=== PATIENT | male | born 1965 | race Caucasian/White ===

== ENCOUNTER 2017-07-08 06:49 | Emergency (ER) | payer BC ==
[~2017-07-08] VITALS: Ht 172.7 cm; Wt 88.5 kg
[~2017-07-08 06:49] MED LIST: BUPR75; HYDCHL12.5 PO; METO50ER; MIRT30 PO; SIMV5 PO; ZOLP5 PO
[2017-07-08] MEDS ORDERED: LOSA50 PO (07:13)
[2017-07-08] MEDS ORDERED: BUPR150ER PO (07:14)
[2017-07-08 07:31] LABS: BASOPHILS ABSOLUTE AUTO 0.05 K/mm3 (0.00-0.23); BASOPHILS PERCENT AUTO 1 % (0-2); EOSINOPHILS ABSOLUTE AUTO 0.13 K/mm3 (0.00-0.68); EOSINOPHILS PERCENT AUTO 2 % (0-6); Hematocrit 42.9 % (37.0-53.0); IMMATURE GRAN ABSOLUTE AUTO 0.05 K/mm3 (0.00-0.10); IMMATURE GRAN PERCENT AUTO 1 % (0-1); LYMPHOCYTES ABSOLUTE AUTO 1.99 K/mm3 (0.84-5.20); LYMPHOCYTES PERCENT AUTO 26 % (21-46); MONOCYTES ABSOLUTE AUTO 0.76 K/mm3 (0.16-1.47); MONOCYTES PERCENT AUTO 10 % (4-13); Mean Corpuscular HGB 32.9 pg (26.0-34.0); Mean Corpuscular Volume 94 fL (80-100); NEUTROPHILS ABSOLUTE AUTO 4.69 K/mm3 (1.96-9.15); NEUTROPHILS PERCENT AUTO 61 % (41-73); Platelet Count 210 K/mm3 (150-400); RDW Coefficient Variation 12.5 % (11.7-14.2); RDW Standard Deviation 43.1 fL (35.1-46.3); Red Blood Cell Count 4.56 M/mm3 (4.30-5.90); White Blood Cell Count 7.67 K/mm3 (4.00-11.30)
[2017-07-08 07:55] LABS: Alanine Aminotransfer (ALT/SGP 69 U/L (12-78); Albumin, Blood 3.2 g/dL (3.4-5.0); Albumin/Globulin Ratio 0.8 (0.8-1.8); Alk Phos 65 U/L (50-136); Anion Gap 14 mmol/L (6-16); Aspartate Aminotrans (AST/SGOT 61 U/L (12-37); Bilirubin, Total 0.3 mg/dL (0.1-1.0); Blood Urea Nitrogen 8 mg/dL (8-24); Bun/Creatinine Ratio 9.9 (12.0-20.0); CO2, Blood 24 mmol/L (21-32); Chloride, Blood 101 mmol/L (98-108); Creatinine, Blood 0.81 mg/dL (0.60-1.20); Glomerular Filtration Rate >60 (60-); Glucose, Blood 138 mg/dL (70-99); Magnesium, Blood 2.1 mg/dL (1.6-2.4); Potassium, Blood 3.3 mmol/L (3.5-5.5); Sodium, Blood 139 mmol/L (136-145); Total Protein, Blood 7.2 g/dL (6.4-8.2)
[2017-07-08] MEDS ORDERED: K-Dur20 MEQ PO (08:07)
== END 2017-07-08 08:22 | disposition home or self-care (01) ==
LOC: ER 06:49
PROVIDERS: Emergency Medicine
DX: R55 Syncope and collapse (principal); E87.6 Hypokalemia; I10 Essential (primary) hypertension; F17.210 Nicotine dependence, cigarettes, uncomplicated; Z79.899 Other long term (current) drug therapy
CPT/HCPCS: 36415; 80053; 83735; 85025; 93005; 93010; 99284

== ENCOUNTER 2018-03-17 10:23 | Day surgery (SDC) | payer BC ==
[~2018-03-17 10:23] MED LIST changes: +BUPR150ER PO; +K-Dur20 MEQ PO; +LOSA50 PO
--- NOTE | 2018-03-17 17:15 | NUR ---
INTO STEP VIA PERRY. S/P EPIDURAL STEROID INJECTION UTILIZING FLURO. PT TOLERATED PROCEDURE WELL. BANDAIDE TO LOWER BACK C/D/I-NO BLEEDING OR HEMATOMA NOTED. DISCHARGE INSTRUCTIONS GIVEN. PT REFUSED WHEELCHAIR-AMBULATED OUT OF SDS WITHOUT DIFFICUTLY.
--- NOTE | 2018-03-18 11:04 | NUR ---
03/18/18 1104 Kandace Landers EDIT TIMES TO REFLECT ACCURATE CHARGE. SPOKE WITH MELONY RASMUSSEN RN WHO WAS PRESENT DURING CASE, STATES END TIME WAS 1712 AND LOCAL WAS USED.
== END 2018-03-17 17:30 | disposition home or self-care (01) ==
LOC: ORSCMMR 10:23 → ORD 10:23 → NM 10:23 → ORSCMMR 10:24 → ORD 17:00 → ORSCMMR 17:30 → ORD 17:30 → NM 17:30
PROVIDERS: Orthopaedic Surgery
PROC: 3E0R33Z Introduction of Anti-inflammatory into Spinal Canal, Percutaneous Approach (ICD-10-PCS; principal; 2018-03-17 17:00)
DX: M51.16 Intervertebral disc disorders with radiculopathy, lumbar region (principal); I10 Essential (primary) hypertension; E78.00 Pure hypercholesterolemia, unspecified; F17.210 Nicotine dependence, cigarettes, uncomplicated
CPT/HCPCS: J1040

== ENCOUNTER → 2020-07-13 | Outpatient (CLI) | payer BC ==
[~2020-07-13] MED LIST changes: +OMEP20ER PO
[2020-07-13 10:57] LABS: Anion Gap 7 mmol/L (6-16); Blood Urea Nitrogen 12 mg/dL (8-24); CO2, Blood 29 mmol/L (21-32); Calcium, Blood 9.7 mg/dL (8.5-10.1); Chloride, Blood 100 mmol/L (98-108); Creatinine, Blood 0.86 mg/dL (0.60-1.20); Glomerular Filtration Rate >60 (60-); Glucose, Blood 120 mg/dL (70-99); Potassium, Blood 4.1 mmol/L (3.5-5.5); Sodium, Blood 136 mmol/L (136-145)
== END | disposition home or self-care (01) ==
LOC: LAB SHORT 09:12
PROVIDERS: Surgery
DX: I10 Essential (primary) hypertension (principal)
CPT/HCPCS: 36415; 80048

== ENCOUNTER 2020-07-14 09:03 | Day surgery (SDC) | payer BC ==
[~2020-07-14] VITALS: Ht 172.7 cm; Wt 88.1 kg
[~2020-07-14 09:03] MED LIST changes: -OMEP20ER PO
[2020-07-14] MEDS ORDERED: OMEP20ER PO (09:32)
--- NOTE | 2020-07-14 11:38 | NUR ---
07/14/20 1138 Fara Lopez BUP 0.5% 5ML MIXED WITH LIDO 1% 5ML FOR A 1:[address] BECK DURING THE PROCEDURE. LIDOCAINE 1% 13ML ALSO INJECTED BY DR. BECK DURING THE PROCEDURE
== END 2020-07-14 12:17 | disposition home or self-care (01) ==
LOC: ORSCSDS 09:03
PROVIDERS: Surgery
PROC: 0JB70ZZ Excision of Back Subcutaneous Tissue and Fascia, Open Approach (ICD-10-PCS; principal; 2020-07-14 10:15)
DX: D17.1 Benign lipomatous neoplasm of skin and subcutaneous tissue of trunk (principal); I10 Essential (primary) hypertension; K21.9 Gastro-esophageal reflux disease without esophagitis; Z79.899 Other long term (current) drug therapy
CPT/HCPCS: 82947; 88304; A9270; J0690; J2250; J2704; J3010; J7120

== ENCOUNTER 2021-09-01 09:29 | Day surgery (SDC) | payer OTHER, BC ==
[~2021-09-01] VITALS: Ht 172.7 cm; Wt 88.8 kg
[~2021-09-01 09:29] MED LIST changes: +OMEP20ER PO
[2021-09-01] MEDS ORDERED: IBUP600 (10:04)
[2021-09-01] MEDS ORDERED: GABA400 (10:04)
[2021-09-01] MEDS ORDERED: VICODIN HP 10-1 EAC1 (10:04)
== END 2021-09-01 10:55 | disposition home or self-care (01) ==
LOC: ORSCSDS 09:29
PROVIDERS: Anesthesiology
PROC: 3E0R33Z Introduction of Anti-inflammatory into Spinal Canal, Percutaneous Approach (ICD-10-PCS; principal; 2021-09-01 10:15)
DX: M51.16 Intervertebral disc disorders with radiculopathy, lumbar region (principal); M48.061 Spinal stenosis, lumbar region without neurogenic claudication; K21.9 Gastro-esophageal reflux disease without esophagitis; E66.9 Obesity, unspecified; Z68.30 Body mass index [BMI] 30.0-30.9, adult; I10 Essential (primary) hypertension; Z79.899 Other long term (current) drug therapy
CPT/HCPCS: J1040

== ENCOUNTER → 2022-10-18 | Outpatient (CLI) | payer BC ==
[~2022-10-18] MED LIST changes: +GABA400; +IBUP600; +VICODIN HP 10-1 EAC1
== END ==
LOC: LAB SHORT 12:36 → PLD 12:36
DX: D48.5 Neoplasm of uncertain behavior of skin (principal)
CPT/HCPCS: 88305

== ENCOUNTER 2022-11-26 06:31 | Day surgery (SDC) | payer BC ==
[~2022-11-26] VITALS: Ht 172.7 cm; Wt 86.3 kg
[2022-11-26] MEDS ORDERED: Aspir 8181 MG PO (07:02)
[2022-11-26] MEDS ORDERED: Norco 5-325 Ta1 EACH PO (07:04)
--- NOTE | 2022-11-26 08:04 | NUR ---
11/26/22 0804 Kirstie Linares 20ML OF ROPIVACAINE 0.5% MIXED AND VERIFIED WITH 0.1ML OF EPI (1MG/ML) TO MAKE ROPIVACAINE 0.5% WITH EPI 1:200,000 FOR INJECTION AT THE OPSITE BY DR ESCAMILLA.
[2022-11-26 09:30] VITALS: BP 92/64
--- NOTE | 2022-11-26 09:57 | NUR ---
11/26/22 0957 Mary Vu PT REMOVED FROM O2 AND IS STABLE AT 96% ON RA. PTS PARTNER FELICIA IS AT BEDSIDE AND PT APPEARS TO BE COMFORTABLE.
== END 2022-11-26 10:29 | disposition home or self-care (01) ==
LOC: ORSCSDS 06:31
PROVIDERS: Orthopaedic Surgery
PROC: 0QSG34Z Reposition Right Tibia with Internal Fixation Device, Percutaneous Approach (ICD-10-PCS; principal; 2022-11-26 07:30)
PROC: 0QSJ34Z Reposition Right Fibula with Internal Fixation Device, Percutaneous Approach (ICD-10-PCS; principal; 2022-11-26 07:30)
DX: S82.861A Displaced Maisonneuve's fracture of right leg, initial encounter for closed fracture (principal); I10 Essential (primary) hypertension; Z87.891 Personal history of nicotine dependence; G62.9 Polyneuropathy, unspecified; Z79.899 Other long term (current) drug therapy; Z79.82 Long term (current) use of aspirin
CPT/HCPCS: A9270; C1776; J0171; J0690; J1100; J1885; J2250; J2371; J2405; J2704; J2795; J3010; J3370; J7120

== ENCOUNTER 2023-12-09 17:25 | Inpatient (IN) | payer BC ==
[~2023-12-09] VITALS: Ht 172.7 cm; Wt 81.3 kg
[~2023-12-09 17:25] MED LIST changes: +Aspir 8181 MG PO; +BUPR150ER; -BUPR150ER PO; -METO50ER; +METO50ER PO; +Norco 5-325 Ta1 EACH PO
[2023-12-09 17:54] LABS: BASOPHILS ABSOLUTE AUTO 0.05 K/mm3 (0.00-0.23); BASOPHILS PERCENT AUTO 1 % (0-2); EOSINOPHILS ABSOLUTE AUTO 0.11 K/mm3 (0.00-0.68); EOSINOPHILS PERCENT AUTO 2 % (0-6); Hemoglobin 13.7 g/dL (13.5-17.5); IMMATURE GRAN ABSOLUTE AUTO 0.05 K/mm3 (0.00-0.10); IMMATURE GRAN PERCENT AUTO 1 % (0-1); LYMPHOCYTES ABSOLUTE AUTO 1.95 K/mm3 (0.84-5.20); LYMPHOCYTES PERCENT AUTO 27 % (21-46); MONOCYTES ABSOLUTE AUTO 0.78 K/mm3 (0.16-1.47); MONOCYTES PERCENT AUTO 11 % (4-13); Mean Corpuscular HGB 34.7 pg (26.0-34.0); Mean Corpuscular HGB Conc 35.1 g/dL (31.5-36.5); Mean Corpuscular Volume 99 fL (80-100); NEUTROPHILS ABSOLUTE AUTO 4.26 K/mm3 (1.96-9.15); NEUTROPHILS PERCENT AUTO 59 % (41-73); Platelet Count 135 K/mm3 (150-400); RDW Coefficient Variation 12.7 % (11.7-14.2); RDW Standard Deviation 46.3 fL (35.1-46.3); Red Blood Cell Count 3.95 M/mm3 (4.30-5.90)
[2023-12-09] MEDS ORDERED: GABA300 PO (17:56)
[2023-12-09] MEDS ORDERED: CYCL10 (17:57)
[2023-12-09] MEDS ORDERED: MELATONIN5 M1 PO (17:58)
[2023-12-09] MEDS ORDERED: TRAZ50 PO (17:58)
[2023-12-09 18:23] LABS: Albumin, Blood 3.3 g/dL (3.4-5.0); Bilirubin, Total 0.7 mg/dL (0.1-1.0); Bun/Creatinine Ratio 10.9 (12.0-20.0); Calcium, Blood 9.4 mg/dL (8.5-10.1); Creatinine, Blood 0.74 mg/dL (0.60-1.20); Globulin, Blood 3.4 g/dL (2.2-4.0); Potassium, Blood 3.9 mmol/L (3.5-5.5); Total Protein, Blood 6.7 g/dL (6.4-8.2)
[2023-12-09] MEDS ORDERED: Aspirin 81 MG Chew PO ONE (18:35)
[2023-12-09] MEDS ORDERED: Acetaminophen 325 MG TABLET PO PRN (20:05)
[2023-12-09] MEDS ORDERED: Ondansetron HCl 2 MG / ML 2ML Vial IV PRN (20:05)
[2023-12-09] MEDS ORDERED: HYDROcodone 5-APAP 325 TAB PO PRN (20:10)
[2023-12-09 20:53] VITALS: BP 123/80
[2023-12-09] MEDS ORDERED: Metoprolol Succinate 50 MG TABCR PO SCH (21:00)
[2023-12-09 21:37] LABS: Anti-Xa UFH, PHA Monitoring <0.10 IU/mL; International Normalized Ratio 1.02; Prothrombin Time Results 10.9 Sec (9.7-11.5)
[2023-12-09] MEDS ORDERED: Dose Adjust by Pharmacy XX STA (21:53)
[2023-12-09] MEDS ORDERED: Heparin Sodium,Porcine/0.5 NS 500 ML IV SCH (21:55)
[2023-12-09] MEDS ORDERED: Heparin Sodium 5000 Units/ML 1ML MDV IV ONE (21:55)
[2023-12-09] MEDS ORDERED: TraZODone HCl 50 MG Tab PO SCH (22:00)
[2023-12-09] MEDS ORDERED: Gabapentin 300 MG Cap PO SCH (23:00)
--- NOTE | 2023-12-09 23:03 | NUR ---
PHYSICIAN COMMUNICATION CONTACTED DR GUTHRIE TO NOTIFY HER THAT THE PATIENT WAS ADMITTED FOR CHEST PAIN BUT DID NOT COMPLAIN OF ANY UPON ARRIVAL. BUT THAT HE JUST CALLED TO NOTIFY THIS RN THAT HE IS NOW EXPERIENCING SHARP, BURNING, INTENSE PRESSURE RADIATING DOWN HIS LEFT ARM. DR GUTHRIE TO INPUT ORDERS.
[2023-12-09] MEDS ORDERED: Nitroglycerin 0.4 MG SUBL SL PRN (23:05)
[2023-12-09 23:21] VITALS: BP 111/82
[2023-12-10] VITALS (14 sets, daily range): BP systolic 100–123; BP diastolic 60–94
[2023-12-10] MEDS ORDERED: Dose Adjust by Pharmacy XX STA (05:56)
--- NOTE | 2023-12-10 05:56 | NUR ---
SHIFT SUMMARY PATIENT ARRIVED TO PCU 14 AT 2039. HE IS ALERT AND ORIENTED X4 AND WAS ABLE TO INDEPENDENTLY AMBULATE TO THE BED. UPON ADMIT HE HAD NO COMPLAINTS OF CHEST PAIN/PRESSURE, HOWEVER HE HAS HAD TWO EPISODE OF CHEST PAIN OVERNIGHT FOR WHICH HE WAS MEDICATED WITH NITROGLYCERIN. THE NITRO WAS EFFECTIVE FOR THE PAIN. PATIENT ALSO MEDICATED FOR BACK PAIN. PATIENT ON ROOM AIR WITH SPO2 >90%. VITAL SIGNS STABLE. WILL CONTINUE TO MONITOR. CALL LIGHT WITHIN REACH.
[2023-12-10] MEDS ORDERED: Omeprazole 20 MG CapCR PO SCH (06:00)
--- NOTE | 2023-12-10 07:11 | NUR ---
Echo in progress. Dr. Doe here, signing consent for angiogram with the pt.
[2023-12-10] MEDS ORDERED: FentaNYL Citrate 50 MCG/ML 2 ML Injection ONE ×2 (07:43→08:45)
[2023-12-10] MEDS ORDERED: Midazolam HCl 1MG / ML 2ML Vial ONE ×2 (07:43→08:45)
[2023-12-10] MEDS ORDERED: NS 1,000 ML IV ONE ×2 (07:44→09:41)
[2023-12-10] MEDS ORDERED: Heparin Sodium 1000 Units/ML 10ML MDV ONE ×2 (08:43→09:41)
[2023-12-10] MEDS ORDERED: Aspirin 81 MG Chew PO SCH (09:00)
[2023-12-10] MEDS ORDERED: Atorvastatin 40 MG Tab PO SCH (09:00)
[2023-12-10] MEDS ORDERED: NS 250 ML IV ONE (09:41)
[2023-12-10] MEDS ORDERED: Nitroglycerin 2 MG/20 ML BTL ONE (09:41)
[2023-12-10] MEDS ORDERED: Verapamil HCL 2.5 MG/ML 2ML Injection ONE (09:41)
--- NOTE | 2023-12-10 09:50 | NUR ---
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 Right wrist in immobilizer board, removed briefly to observe the insertion site which is seen with TR band and it is WNL. Pt denies any pain/numbness/tingling in the right arm/hand. States pain in chest is the tiny mild pain which has not gone away. Per Dr. Doe, the pt will not be going back on heparin at this time.
--- NOTE | 2023-12-10 10:48 | NUR ---
Reassessment of the right radial access site unchanged from before. Pt eating and drinking well. Pleasantly conversant with his friend Oleksandr as well as the discharge specialist. Discussing the options of CABG vs PCI.
--- NOTE | 2023-12-10 10:55 | NUR ---
2 CC AIR REMOVED FROM TR BAND.
--- NOTE | 2023-12-10 12:01 | NUR ---
Slight oozing noted had occured after the first deflation. 20 minutes later, 2 cc removed, no bleeding, no bruising, no hematoma, no swelling..Pt stated that he had some pressure which has now resolved, Additional 3 cc air removed at this time. No more bleeding, no hematoma, no swelling noted. Pt denies discomfort at the site. V/S are stable. He is eating and drinking his lunch.
--- NOTE | 2023-12-10 12:34 | NUR ---
TR band fully deflated.
--- NOTE | 2023-12-10 12:44 | NUR ---
reported chest pain 7-8/10. No dyspnea noted, 97% spo2, b/p 135/78 (95). Given 1 NTG per prn orders. No changes noted on tele, NSR 67 bpm.
--- NOTE | 2023-12-10 13:23 | NUR ---
Pt is up to bathroom; his friend Oleksandr states that the pt's pain had decreased back down to 2/10 as it was this morning before the angiogram. Heparin gtt was restarted at the previous rate per pharmacy and Dr. Doe.
--- NOTE | 2023-12-10 14:41 | NUR ---
TR band was removed, area cleased with chlorohexidine skin swab, patted gently dry with gauze and sterile clear tegederm dressing applied. Pt's arm is elevated on 2 pillows as there is noted some bruising distal to the border of the TR band site. Pt states some aching. No other symptoms noted. Pt has intermittent chest pain, relief with NTG. Heparin gtt is ongoing. Added 1.5 l/min of O2 as his pain continues to return. He is resting in bed.
--- NOTE | 2023-12-10 15:54 | NUR ---
Pt states chest pain has been reduced to 2/10.
--- NOTE | 2023-12-10 17:50 | NUR ---
Intermittent chest pain, exacerbated with activity and eating and stress. He has taken NTG SL several times, with relief. Also applied o2 at 2 l/min for relief. Some of the chest pain episodes were spontaneously resolved. Received word of room assignment at [facility] in [place]. Ground ambulance transport arranged for 7 pm tonight.
--- NOTE | 2023-12-10 20:28 | NUR ---
TRANSPORT UPDATE REPORT CALLED TO CAL ARNOLD AT [facility], ALL QUESTIONS ANSWERED. 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 HEPARIN gtt INFUSING ORDERD PER EMAR. DENIES ANY CP, PRESSURE OR DIZZINESS. VSS, NADN UPON TRANSFER.
[2023-12-10] MEDS ORDERED: Gabapentin 300 MG Cap PO SCH (21:00)
[2023-12-11] MEDS ORDERED: Losartan Potassium 50 MG Tab PO SCH (09:00)
== END 2023-12-10 20:05 | disposition short-term general hospital (02) | DRG 282 ==
LOC: ER 17:25 → PCU 17:26
PROVIDERS: Nurse Practitioner Acute Care; Physician Assistant; ADMIT Internal Medicine
PROC: 4A023N7 Measurement of Cardiac Sampling and Pressure, Left Heart, Percutaneous Approach (ICD-10-PCS; principal; 2023-12-10)
PROC: B2111ZZ Fluoroscopy of Multiple Coronary Arteries using Low Osmolar Contrast (ICD-10-PCS; 2023-12-10)
PROC: 4A033BC Measurement of Arterial Pressure, Coronary, Percutaneous Approach (ICD-10-PCS; 2023-12-10)
DX: I21.4 Non-ST elevation (NSTEMI) myocardial infarction (principal); I10 Essential (primary) hypertension; K21.9 Gastro-esophageal reflux disease without esophagitis; E78.5 Hyperlipidemia, unspecified; M54.9 Dorsalgia, unspecified; G89.29 Other chronic pain; D69.6 Thrombocytopenia, unspecified; I20.0 Unstable angina; F17.210 Nicotine dependence, cigarettes, uncomplicated; M79.2 Neuralgia and neuritis, unspecified; Z79.899 Other long term (current) drug therapy; Z79.82 Long term (current) use of aspirin; Z79.891 Long term (current) use of opiate analgesic; Z90.89 Acquired absence of other organs; Z98.890 Other specified postprocedural states
CPT/HCPCS: 36415; 71046; 76937; 80053; 83690; 83880; 84484; 85025; 85347; 85379; 85520; 85610; 93005; 93010; 93306; 93454; 93571; 96374; 99152; 99153; 99285-25; A9270; C1769; C1887; C1894; G0378; J1644; J2250; J3010; J7030; J7050; Q9967